=== PATIENT | female | born 1960 | race Caucasian/White ===

== ENCOUNTER 2020-02-09 14:38 | Observation (INO) ==
[2020-02-09] MEDS ORDERED: Ondansetron 4 MG/2 ML VIAL IVP PRN ×2 (15:25→21:32)
[2020-02-09] MEDS ORDERED: *HR* Promethazine 25 MG/ML VIAL IVP PRN (15:25)
[2020-02-09] MEDS ORDERED: Famotidine 20 MG/2 ML VIAL IVP ONE (15:25)
[2020-02-09] MEDS ORDERED: CeFAZolin Syr 2,000MG/20 ML 2,000 MG/20 ML SYRINGE IVPB ONE (15:30)
[2020-02-09] MEDS ORDERED: Ringers Solution, Lactated 1,000 ML IVC SCH (15:30)
[2020-02-09] MEDS ORDERED: *HR* Rocuronium Bromide 50 MG/5 ML VIAL ONE ×2 (15:51→17:59)
[2020-02-09] MEDS ORDERED: Ondansetron 4 MG/2 ML VIAL ONE (15:51)
[2020-02-09] MEDS ORDERED: *HR* Succinylcholine 200 MG/10 ML VIAL IVP ONE (15:51)
[2020-02-09] MEDS ORDERED: Neostigmine Methylsulfate 3 MG/3 ML SYRINGE ONE (15:51)
[2020-02-09] MEDS ORDERED: Lidocaine -MPF 4% 5 ML AMPUL ONE ×2 (15:51→15:56)
[2020-02-09] MEDS ORDERED: Dexamethasone 4 MG/ML VIAL ONE (15:51)
[2020-02-09] MEDS ORDERED: *HR* OxyCODONE/APAP 5/325 TABLET PO ONE (15:51)
[2020-02-09] MEDS ORDERED: *HR* FentaNYL (PF) 100 MCG/2 ML VIAL ONE (15:52)
[2020-02-09] MEDS ORDERED: *HR* Propofol 200 MG/20 ML VIAL IVP ONE (15:52)
[2020-02-09] MEDS ORDERED: Lidocaine -MPF 2% 2 ML VIAL ONE ×2 (15:53→15:54)
[2020-02-09] MEDS ORDERED: EPHEDrine 50 MG/ML VIAL ONE (16:00)
[2020-02-09] MEDS ORDERED: *HR* PHENYLEPHRINE 1,000 MCG/10 ML SYRINGE IVP ONE (16:24)
[2020-02-09] MEDS ORDERED: *HR* Labetalol 20 MG/4 ML SYRINGE IVP ONE (16:40)
[2020-02-09] MEDS ORDERED: *HR* HYDROMORPHONE 2 MG/ML VIAL ONE (19:16)
[2020-02-09] MEDS: *HR* HYDROmorphone (PF) 1 MG/ML SYRINGE IVP PRN ×3 (19:47→20:07)
[2020-02-09] MEDS: *HR* Labetalol 20 MG/4 ML SYRINGE IVP PRN ×2 (19:58→20:07)
[2020-02-09] MEDS ORDERED: *HR* Dextrose 50 % in Water (Vial) 50 ML VIAL IVP PRN (21:32)
[2020-02-09] MEDS ORDERED: *HR* OxyCODONE Oral Soln 5 MG/5 ML UD.LIQ PO PRN (21:32)
[2020-02-09] MEDS ORDERED: Naloxone 0.4 MG/ML INJ IVP PRN (21:32)
[2020-02-09] MEDS ORDERED: 0.9 % Sodium Chloride 1,000 ML IVC SCH (21:32)
[2020-02-09] MEDS ORDERED: Dextrose Gel 15 GM/37.5 ML TUBE PO PRN ×2 (21:32)
[2020-02-09] MEDS ORDERED: rOPINIRole 1 MG TABLET PO SCH (21:32)
[2020-02-09] MEDS ORDERED: D5% in Water 1,000 ML IVC PRN (21:32)
[2020-02-09] MEDS ORDERED: polyethylene glycoL 3350 17 GM POWD.PACK PO PRN (21:32)
[2020-02-09] MEDS: Ketorolac 15 MG/ML VIAL IVP SCH (22:42)
[2020-02-09] MEDS: Insulin LISPRO 300 UNITS/3 ML VIAL SQ SCH (22:43)
[2020-02-09] MEDS: *HR* OxyCODONE/APAP 5/325 TABLET PO PRN (22:55)
[2020-02-10] MEDS: *HR* OxyCODONE/APAP 5/325 TABLET PO PRN (03:53)
[2020-02-10] MEDS ORDERED: *HR* Heparin 5,000 UNIT/ML VIAL SQ SCH (06:00)
[2020-02-10] MEDS: Ketorolac 15 MG/ML VIAL IVP SCH (06:07)
[2020-02-10 06:23] LABS: Basophils % 0.2 %; Eosinophils # 0.1 K/mcL (0.0-0.6); Eosinophils % 0.5 %; Hematocrit 36.7 % (35.3-44.9); Hemoglobin 11.2 g/dL (11.5-15.4); Immature Granulocytes % 0.4 % (0-4); Lymphocytes # 2.1 K/mcL (0.6-4.6); Lymphocytes % 20.5 %; Mean Corpuscular HGB Conc 30.5 g/dL (31.6-35.5); Mean Corpuscular Hemoglobin 26.4 pg (28.0-33.3); Mean Corpuscular Volume 86.6 fL (83.0-100.0); Monocytes # 0.7 K/mcL (0.0-1.3); Monocytes % 6.9 %; Neutrophils # 7.4 K/mcL (1.6-8.9); Platelet Count 199 K/mcL (140-400); Red Blood Count 4.24 M/mcL (3.82-4.97); Red Cell Distribution Width 13.2 % (11.5-14.5); Segmented Neutrophils % 71.5 %; White Blood Count 10.3 K/mcL (4.3-11.1)
[2020-02-10 06:44] LABS: BUN/Creatinine Ratio 34 (6-26); Blood Urea Nitrogen 19 mg/dL (6-20); Calcium 8.4 mg/dL (8.6-10.3); Carbon Dioxide 26 mEq/L (23-29); Chloride 103 mEq/L (98-107); Glucose 115 mg/dL (70-105); Osmolality,Calculated 289 (280-300); Potassium 4.2 mEq/L (3.5-5.1); Sodium 138 mEq/L (136-145); eGFR For African Americans > 60 (> 60); eGFR For Non-African Americans > 60 (> 60)
[2020-02-10 07:19] VITALS: BP 124/84
[2020-02-10] MEDS: Insulin LISPRO 300 UNITS/3 ML VIAL SQ SCH (07:48)
[2020-02-10] MEDS ORDERED: FLUoxetine 20 MG CAPSULE PO SCH (09:00)
[2020-02-10] MEDS ORDERED: *HR* Pioglitazone 30 MG TABLET PO SCH (09:00)
[2020-02-10] MEDS ORDERED: Loratadine 10 MG TABLET PO SCH (09:00)
[2020-02-10] MEDS ORDERED: *HR* Metformin 500 MG TABLET PO SCH (18:00)
== END 2020-02-10 14:05 | disposition home or self-care (01) ==
LOC: SAMDAY 14:38 → 3ANU 14:38
PROVIDERS: ADMIT Surgery; ATTEND Surgery